=== PATIENT | female | born 1960 | race Caucasian/White ===

== ENCOUNTER 2016-04-26 12:10 | Inpatient (IN) | payer MEDICAID ==
[~2016-04-26] VITALS: Ht 170.2 cm; Wt 71.2 kg
[2016-04-26 12:10] VITALS: BP 85/53; PULSE 116; RESP 16; TEMP 96.3; O2SAT 97
--- NOTE | 2016-04-26 12:17 | NUR ---
Patient to ER bed 7 to gown for evaluation. Side rails up. Report given to SUNNY LAGUNA.
--- NOTE | 2016-04-26 12:30 | NUR ---
Placed on monitor worker, blood pressure machine and pulse oximeter. To gown for exam. Side rails up.
--- NOTE | 2016-04-26 12:39 | NUR ---
informed Dr Tapia for pt's low blood pressure
--- NOTE | 2016-04-26 12:39 | NUR ---
# 20 gauge angiocath placed to RIGHT HAND. Use of asceptic technique. Opsite placed over site. Blood return noted. . Flushed with 10 cc of normal saline. No evidence of infiltration noted. Patient tolerated well.
[2016-04-26] MEDS ORDERED: NACL 0.9% 1,000 ML IV ONE ×2 (12:45→15:00)
--- NOTE | 2016-04-26 12:45 | NUR ---
ER MD DR. HERNANDEZ AT BEDSIDE.
[2016-04-26 13:22] LABS: BASOPHILS % (AUTO) 0.4 % (0.0-2.0); EOSINOPHILS # (AUTO) 0.1 K/uL (0.0-0.4); EOSINOPHILS % (AUTO) 1.2 % (0.0-4.0); HEMATOCRIT 45.9 % (36-48); HEMOGLOBIN 15.1 g/dL (12.0-16.0); LYMPHOCYTES # (AUTO) 0.8 K/uL (1.0-5.5); LYMPHOCYTES % (AUTO) 11.3 % (20.5-51.5); MEAN CORPUSCULAR HEMOGLOBIN 30 pg (27-31); MEAN CORPUSCULAR HGB CONC 33 % (32-36); MEAN CORPUSCULAR VOLUME 91 fL (79.0-98.0); MONOCYTES # (AUTO) 0.3 K/uL (0.0-1.0); MONOCYTES % (AUTO) 5.1 % (1.7-9.3); NEUTROPHILS # (AUTO) 5.5 K/uL (1.8-7.7); PLATELET COUNT (AUTO) 233 K/uL (130-430); RED BLOOD CELL COUNT(AUTO) 5.06 MIL/uL (4.2-6.2); RED CELL DISTRIBUTION WIDTH 13.9 % (9.0-15.0); WHITE BLOOD COUNT (AUTO) 6.7 K/uL (4.8-10.8)
--- NOTE | 2016-04-26 13:28 | NUR ---
# 14 FR In and Out catheter with use of sterile technique. Immediate return of 145 ml urine noted. Urine sample collected and sent to lab. Pt tolerated procedure well. Patient unable to toilet self.
[2016-04-26 13:31] LABS: CALCIUM 8.1 mg/dL (8.4-11.0); CREATININE 1.05 mg/dL (0.55-1.30); POTASSIUM 3.5 mmol/L (3.5-5.1)
[2016-04-26 13:45] LABS: ALBUMIN 3.2 g/dL (3.4-4.8); TOTAL BILIRUBIN 0.5 mg/dL (0.0-1.0); TOTAL PROTEIN, SERUM 6.9 g/dL (6.4-8.3)
[2016-04-26] MEDS ORDERED: PIPERACILLIN/TAZO 3.375 GM in NS 50 ML IV ONE (15:00)
[2016-04-26] MEDS ORDERED: PIPERACILLIN/TAZOBACTAM 3.375 GM/VIAL (ZOSYN) IV ONE (15:06)
[2016-04-26 15:07] LABS: CLARITY/URINE HAZY (CLEAR); GLUCOSE,URINE NEGATIVE (NEGATIVE); KETONES,URINE TRACE (NEGATIVE); LEUKOCYTE ESTERASE ,URINE TRACE (NEGATIVE); NITRITE, URINE POSITIVE (NEGATIVE); PH,URINE 6.5 (5.0-8.0); PROTEIN URINE 2+ (NEGATIVE)
--- NOTE | 2016-04-26 15:11 | NUR ---
report given to pito LAGUNA
--- NOTE | 2016-04-26 15:11 | NUR ---
Pt transported to ct scan via [facility]
[2016-04-26 15:18] LABS: BILIRUBIN,URINE NEGATIVE (NEGATIVE); BLOOD, URINE TRACE (NEGATIVE); COLOR,URINE AMBER (YELLOW)
[2016-04-26 15:54] LABS: BACTERIA,URINE MANY /HPF (None Seen); COARSE GRANULAR CASTS,URINE 0-10 /LPF (None Seen); MUCUS,URINE None Seen /LPF (None Seen); RBC,URINE NONE SEEN /HPF (0-3); WBC,URINE 20-50 /HPF (0-3)
--- NOTE | 2016-04-26 16:00 | NUR ---
pt. in bed BP 125/78 stable verbalizes comfort, states "no pain"
[2016-04-26] MEDS ORDERED: DIGO125T79 PO (16:36)
[2016-04-26] MEDS ORDERED: PRO40 PO (16:36)
[2016-04-26] MEDS ORDERED: RIVA10TA PO (16:36)
[2016-04-26] MEDS ORDERED: DULO20CA PO (16:36)
[2016-04-26] MEDS ORDERED: LORA1TAB PO (16:37)
[2016-04-26] MEDS ORDERED: LYR25 PO (16:38)
--- NOTE | 2016-04-26 17:00 | NUR ---
Patient will be admitted to care of dr. hood. Admitted to tele unit. Will go to room 135. Summary report printed. Report given to admitting rn.
--- NOTE | 2016-04-26 17:00 | NUR ---
ADMISSION NOTE Received patient from ER via gurney. Patient admitted with diagnosis of urosepsis. Patient oriented to hospital routine, call light, toileting and safety-patient verbalized understanding.
[2016-04-26 17:10] VITALS: BP 130/78; PULSE 81; RESP 17; TEMP 97.1; O2SAT 100
[2016-04-26] MEDS ORDERED: FLU VACC QS 2016-17(36MOS+)/PF 0.5 ML/SYR SYRINGE I.M. PRN (17:30)
[2016-04-26] MEDS ORDERED: ACETAMINOPHEN 325 MG TABLET PO PRN (17:45)
--- NOTE | 2016-04-26 18:44 | NUR ---
CLOSING NOTE Will endorse patient to shift commander nurse. Patient is stable, no signs of distress. Patient reeducated on use of call light, to call when bakery assistant is needed. Reeducated patient on fall precaution. Yellow wrist band is in place. Patient's bed is in the lowest position, two side rails up. bed alarm is currently on. Fall precautions in place. Dr. Shepherd primary doctor is here to see patient as well. All needs met.
[2016-04-26] MEDS ORDERED: HYDROcodone/ACETAMIN 5-325 MG TAB (NORCO/ VICODIN) PO PRN (18:45)
[2016-04-26] MEDS ORDERED: ZOLPIDEM TARTRATE 5 MG TABLET PO PRN (18:45)
[2016-04-26] MEDS ORDERED: LEVOFLOXACIN 500 MG/D5W 100 ML IV SCH (19:00)
[2016-04-26 19:30] VITALS: BP 119/78; PULSE 77; RESP 18; TEMP 97.1; O2SAT 100
--- NOTE | 2016-04-26 19:55 | NUR ---
PM ASSESSMENT PT. A/OX4, VITAL SIGNS STABLE, NO DISTRESS NOTED, PT. REPORTS PAIN TO LEFT LOWER EXTREMITY RATED 5/10, PAIN MEDICATION TO BE GIVEN, NOTED WITH FOAM DRESSING TO LEFT KNEE. UPDATED WITH PLAN OF CARE, CALL LIGHT WITHIN REACH, WILL CONTINUE TO MONITOR.
[2016-04-26] MEDS: PREGABALIN 25 MG CAPSULE (LYRICA) PO SCH (20:18)
[2016-04-26] MEDS: KCL 20 mEq in D5/0.45NS 1000mL 1,000 ML IV SCH (20:19)
--- NOTE | 2016-04-26 21:30 | NUR ---
RN ROUNDS PT. RESTING QUIETLY, VITAL SIGNS STABLE, NO DISTRESS NOTED, DENIES PAIN, CALL LIGHT WITHIN REACH, WILL CONTINUE TO MONITOR.
--- NOTE | 2016-04-26 23:25 | NUR ---
RN ROUNDS PT. RESTING QUIETLY, VITAL SIGNS STABLE, NO DISTRESS NOTED, DENIES PAIN, CALL LIGHT WITHIN REACH, WILL CONTINUE TO MONITOR.
[2016-04-27 00:46] VITALS: BP 122/76; PULSE 78; RESP 18; TEMP 97.8; O2SAT 100
--- NOTE | 2016-04-27 01:00 | NUR ---
RN ROUNDS PT. RESTING QUIETLY, VITAL SIGNS STABLE, NO DISTRESS NOTED, DENIES PAIN, CALL LIGHT WITHIN REACH, WILL CONTINUE TO MONITOR.
--- NOTE | 2016-04-27 02:48 | NUR ---
AMBULATION PT. AMBULATED TO THE BATHROOM WITH ASSIST, NOTED WITH SLOW, STEADY GAIT, PT. ABLE TO URINATE. AMBULATED BACK TO BED.
--- NOTE | 2016-04-27 04:00 | NUR ---
RN ROUNDS PT. RESTING QUIETLY, VITAL SIGNS STABLE, NO DISTRESS NOTED, DENIES PAIN, CALL LIGHT WITHIN REACH, WILL CONTINUE TO MONITOR.
[2016-04-27 05:03] VITALS: BP 118/66; PULSE 82; RESP 18; TEMP 98.2; O2SAT 98
[2016-04-27] MEDS: KCL 20 mEq in D5/0.45NS 1000mL 1,000 ML IV SCH ×2 (05:15→13:15)
--- NOTE | 2016-04-27 06:00 | NUR ---
AMBULATE TO THE BATHROOM ASSISTED PT. TO AMBULATE TO THE BATHROOM, NOTED WITH SLOW, STEADY GAIT, PT. ABLE TO URINATE CLEAR YELLOW URINE. ASSISTED SAFELY BACK INTO BED.
--- NOTE | 2016-04-27 06:33 | NUR ---
CLOSING NOTES PT. RESTING QUIETLY, VITAL SIGNS STABLE, NO DISTRESS NOTED, DENIES PAIN, CALL LIGHT WITHIN REACH, KEPT COMFORTABLE.
--- NOTE | 2016-04-27 07:24 | NUR ---
Nutrition Update Pt was admitted with Urosepsis, UTI. Jamel Scale: 18 Diet: Regular BMI: 24.7 kg/m2 RD to follow up per nutrition care standards.
[2016-04-27 07:43] VITALS: BP 108/69; PULSE 73; RESP 14; TEMP 97.2; O2SAT 100
--- NOTE | 2016-04-27 08:00 | NUR ---
Initial note A/O x4, no SOB, no chest pain. Skin warm to touch, s/p fall, laceration at L knee, with serosang drainage, free of s/s of infection. Patient tolerated treatment well. IV #20 at R AC, patent, no infection or infiltration. Continue D5 1/2 NS with Potassium 20 at rate of 100 ml/hr. Clear breathing sounds and active bowel sounds. +2 radial and pedal pulses, no edema noted. Risk for fall, bed at lowest position, bed alarm on, call light within reach, education provided, will continue to monitor patient. Addendum: 04/27/16 at 1723 by Esvin Singh RN IV #20 at R hand, not R AC. AL
[2016-04-27 08:19] LABS: HEMATOCRIT 41.1 % (36-48); HEMOGLOBIN 12.8 g/dL (12.0-16.0); MEAN CORPUSCULAR HEMOGLOBIN 28 pg (27-31); MEAN CORPUSCULAR HGB CONC 31 % (32-36); MEAN CORPUSCULAR VOLUME 91 fL (79.0-98.0); PLATELET COUNT (AUTO) 203 K/uL (130-430); WHITE BLOOD COUNT (AUTO) 5.9 K/uL (4.8-10.8)
[2016-04-27 08:35] LABS: ALBUMIN 2.6 g/dL (3.4-4.8); CALCIUM 7.3 mg/dL (8.4-11.0); CREATININE 0.69 mg/dL (0.55-1.30); POTASSIUM 4.5 mmol/L (3.5-5.1); TOTAL BILIRUBIN 0.5 mg/dL (0.0-1.0); TOTAL PROTEIN, SERUM 5.8 g/dL (6.4-8.3)
[2016-04-27] MEDS: PREGABALIN 25 MG CAPSULE (LYRICA) PO SCH (09:00)
[2016-04-27] MEDS ORDERED: RIVAROXABAN 10 MG TABLET PO SCH (09:00)
[2016-04-27] MEDS ORDERED: DIGOXIN 0.125 MG TABLET PO SCH (09:00)
[2016-04-27] MEDS ORDERED: DULoxetine HCL 20 MG CAPSULE.DR PO SCH ×2 (09:00)
[2016-04-27] MEDS ORDERED: PANTOPRAZOLE SODIUM 40 MG TAB PO SCH (09:00)
--- NOTE | 2016-04-27 09:07 | NUR ---
MD CALL Dr Cora lennon, awaiting call back for medication changes. Pt takes lyrica 25mg po daily and order is for 10 mg po bid. Verified with patient and with patients pharmacy [facility]. Addendum: 04/27/16 at 0913 by Abigail Albarran RN spoke with dr hood and informed her of the issue with lyrica, per she will change the order herself
[2016-04-27 09:48] LABS: ATYPICAL LYMPHOCYTES % 3 % (0-0); BAND % (MANUAL) 8 % (0-6); BASOPHILS % (MANUAL) 0 % (0-2); EOSINOPHILS % (MANUAL) 1 % (0-7); LYMPHOCYTES % (MANUAL) 21 % (20-46); MONOCYTES % (MANUAL) 2 % (0-11)
--- NOTE | 2016-04-27 10:00 | NUR ---
Round A/O x4, no SOB, no chest pain. Skin warm to touch, s/p fall, laceration at L knee, dressing at L knee intact and dry. IV #20 at R AC, patent, no infection or infiltration. Continue D5 1/2 NS with Potassium 20 at rate of 100 ml/hr. Clear breathing sounds and active bowel sounds. +2 radial and pedal pulses, no edema noted. Risk for fall, bed at lowest position, bed alarm on, call light within reach, education provided, will continue to monitor patient. Addendum: 04/27/16 at 1723 by Esvin Singh RN IV #20 at R hand, not R AC. AL
[2016-04-27 12:29] VITALS: BP 106/76; PULSE 74; RESP 17; TEMP 98.7; O2SAT 100
[2016-04-27] MEDS ORDERED: PREGABALIN 25 MG CAPSULE (LYRICA) PO ONE (13:45)
--- NOTE | 2016-04-27 14:00 | NUR ---
Round A/O x4, no SOB, no chest pain. Skin warm to touch, s/p fall, laceration at L knee, dressing at L knee intact and dry. IV #20 at R AC, patent, no infection or infiltration. Continue D5 1/2 NS with Potassium 20 at rate of 100 ml/hr. Clear breathing sounds and active bowel sounds. +2 radial and pedal pulses, no edema noted. Helped patient void x 1. Risk for fall, bed at lowest position, bed alarm on, call light within reach, education provided, will continue to monitor patient. Addendum: 04/27/16 at 1724 by Esvin Singh RN IV #20 at R hand, not R AC. AL
[2016-04-27 14:14] VITALS: Ht 170.2 cm; Wt 71.2 kg
[2016-04-27 15:42] VITALS: BP 131/77; PULSE 78; RESP 17; TEMP 97.6; O2SAT 99
--- NOTE | 2016-04-27 16:00 | NUR ---
Round A/O x4, no SOB, no chest pain. Skin warm to touch, s/p fall, laceration at L knee, dressing at L knee intact and dry. IV #20 at R hand, patent, no infection or infiltration. Continue D5 1/2 NS with Potassium 20 at rate of 100 ml/hr. Clear breathing sounds and active bowel sounds. +2 radial and pedal pulses, no edema noted. Dr. Shepherd came and patient is awared she will go home today. 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 Risk for fall, bed at lowest position, bed alarm on, call light within reach, education provided, will continue to monitor patient.
[2016-04-27] MEDS ORDERED: CIPR-211 PO (16:02)
--- NOTE | 2016-04-27 17:05 | NUR ---
D/C Patient Patient given medication reconciliation form and D/C instructions. Exit Care provided. Patient verbalized understanding. MD discussed with patient the results and treatment provided. Ambulatory with assist for discharge to home. Patient in stable condition, ID band removed. IV catheter removed, intact and dressing applied, no active bleeding. Rx of cipro given. Patient educated on pain management. All belongings sent with patient.
[2016-04-28] MEDS ORDERED: PREGABALIN 25 MG CAPSULE (LYRICA) PO SCH (09:00)
== END 2016-04-27 17:02 | disposition home or self-care (01) | DRG 463 ==
LOC: SED 12:10 → STU 16:24
PROVIDERS: ADMIT Internal Medicine; ATTEND Internal Medicine
DX: N39.0 Urinary tract infection, site not specified (principal); D68.69 Other thrombophilia; E44.0 Moderate protein-calorie malnutrition; I48.91 Unspecified atrial fibrillation; M79.7 Fibromyalgia; Z85.3 Personal history of malignant neoplasm of breast; Z90.10 Acquired absence of unspecified breast and nipple; Z79.01 Long term (current) use of anticoagulants; Z92.21 Personal history of antineoplastic chemotherapy; Z68.24 Body mass index [BMI] 24.0-24.9, adult; Z92.3 Personal history of irradiation; Z90.49 Acquired absence of other specified parts of digestive tract; Z79.899 Other long term (current) drug therapy; Z85.841 Personal history of malignant neoplasm of brain; Z85.830 Personal history of malignant neoplasm of bone
CPT/HCPCS: 36415; 70450-TC; 71010; 80053; 80162-TC; 81000-TC; 83605; 83690-TC; 84484; 85007; 85025; 85027; 87040-TC; 87086; 87186-TC; 93005; 96361; 96365; 99285; J1956; J2543; J7030; J7060

== ENCOUNTER 2016-08-29 10:42 | Inpatient (IN) | payer MEDICAID ==
[~2016-08-29] VITALS: Ht 177.8 cm; Wt 75.3 kg
[~2016-08-29 10:42] MED LIST: CIPR-211 PO; DIGO125T79 PO; DULO20CA PO; LORA1TAB PO; LYR25 PO; PRO40 PO; RIVA10TA PO
[2016-08-29 11:00] VITALS: BP_SYST 90
[2016-08-29] MEDS ORDERED: NACL 0.9% 1,000 ML IV SCH (11:36)
[2016-08-29 12:10] LABS: BASOPHILS % (AUTO) 0.2 % (0.0-2.0); EOSINOPHILS % (AUTO) 0.6 % (0.0-4.0); HEMATOCRIT 37.5 % (36-48); HEMOGLOBIN 12.9 g/dL (12.0-16.0); LYMPHOCYTES # (AUTO) 0.5 K/uL (1.0-5.5); MEAN CORPUSCULAR HEMOGLOBIN 33 pg (27-31); MEAN CORPUSCULAR HGB CONC 35 % (32-36); MEAN CORPUSCULAR VOLUME 94 fL (79.0-98.0); MONOCYTES # (AUTO) 0.1 K/uL (0.0-1.0); MONOCYTES % (AUTO) 2.5 % (1.7-9.3); NEUTROPHILS # (AUTO) 3.8 K/uL (1.8-7.7); NEUTROPHILS % (AUTO) 85.7 % (40.0-70.0); PLATELET COUNT (AUTO) 160 K/uL (130-430); RED BLOOD CELL COUNT(AUTO) 3.98 MIL/uL (4.2-6.2); RED CELL DISTRIBUTION WIDTH 17.2 % (9.0-15.0); WHITE BLOOD COUNT (AUTO) 4.4 K/uL (4.8-10.8)
[2016-08-29 12:15] LABS: CREATININE 1.23 mg/dL (0.55-1.30); POTASSIUM 3.6 mmol/L (3.5-5.1)
[2016-08-29 12:16] LABS: BILIRUBIN,URINE NEGATIVE (NEGATIVE); BLOOD, URINE 2+ (NEGATIVE); CLARITY/URINE SL HAZY (CLEAR); COLOR,URINE YELLOW (YELLOW); GLUCOSE,URINE NEGATIVE (NEGATIVE); KETONES,URINE NEGATIVE (NEGATIVE); LEUKOCYTE ESTERASE ,URINE NEGATIVE (NEGATIVE); NITRITE, URINE POSITIVE (NEGATIVE); PH,URINE 5.5 (5.0-8.0); PROTEIN URINE TRACE (NEGATIVE)
[2016-08-29 12:19] LABS: PROTHROMBIN TIME 10.9 SECS (9.5-12.5)
[2016-08-29 12:20] LABS: ALBUMIN 3.4 g/dL (3.4-4.8); TOTAL BILIRUBIN 1.1 mg/dL (0.0-1.0); TOTAL PROTEIN, SERUM 6.9 g/dL (6.4-8.3)
[2016-08-29 12:33] LABS: BACTERIA,URINE MANY /HPF (None Seen); WBC,URINE 0-3 /HPF (0-3)
[2016-08-29] MEDS ORDERED: cefTRIAXone 1 GM in D5W 50 ML IV ONE (14:30)
[2016-08-29] MEDS ORDERED: RIVA10TA PO (14:38)
[2016-08-29] MEDS ORDERED: LYR25 PO (14:38)
[2016-08-29] MEDS ORDERED: PALB75CA PO (14:38)
[2016-08-29] MEDS ORDERED: XARELTO PO (14:38)
[2016-08-29] MEDS: KCL 20 mEq in D5NS 1000 mL 1,000 ML IV SCH (15:47)
[2016-08-29 16:09] VITALS: BP_SYST 106
[2016-08-29] MEDS ORDERED: cefTRIAXone 1 GM IVPB PREMIX 50 ML IV ONE (18:40)
[2016-08-29] MEDS ORDERED: cefTRIAXone 1 GM IVPB PREMIX 50 ML IV SCH (19:15)
[2016-08-29] MEDS ORDERED: HYDROcodone/ACETAMIN 5-325 MG TAB (NORCO/ VICODIN) PO PRN (19:15)
[2016-08-29] MEDS ORDERED: LORazepam 1 MG TABLET PO PRN (19:15)
[2016-08-29] MEDS ORDERED: BENZOCAINE/MENTHOL 1 EACH LOZENGE MM PRN (19:45)
[2016-08-29 20:18] VITALS: BP_SYST 99
[2016-08-29] MEDS: HYDROcodone/ACETAMIN 10-325 MG TAB PO PRN (20:21)
[2016-08-29] MEDS: RIVAROXABAN 10 MG TABLET PO SCH (20:59)
[2016-08-29] MEDS ORDERED: NORMAL SALINE 5 ML DISP.SYRIN IVF SCH (22:00)
[2016-08-30] VITALS (7 sets, daily range): BP systolic 91–123
[2016-08-30] MEDS: KCL 20 mEq in D5NS 1000 mL 1,000 ML IV SCH ×3 (03:39→22:33)
[2016-08-30] MEDS: HYDROcodone/ACETAMIN 10-325 MG TAB PO PRN ×3 (03:39→20:35)
[2016-08-30 07:17] LABS: MONOCYTES # (AUTO) 0.1 K/uL (0.0-1.0); NEUTROPHILS # (AUTO) 1.9 K/uL (1.8-7.7)
[2016-08-30 07:32] LABS: CALCIUM 7.5 mg/dL (8.4-11.0); CREATININE 0.91 mg/dL (0.55-1.30); POTASSIUM 4.2 mmol/L (3.5-5.1)
[2016-08-30 07:33] LABS: BASOPHILS % (AUTO) 0.3 % (0.0-2.0); EOSINOPHILS % (AUTO) 0.5 % (0.0-4.0); HEMATOCRIT 33.6 % (36-48); HEMOGLOBIN 11.3 g/dL (12.0-16.0); LYMPHOCYTES # (AUTO) 0.5 K/uL (1.0-5.5); LYMPHOCYTES % (AUTO) 21.9 % (20.5-51.5); MEAN CORPUSCULAR HEMOGLOBIN 32 pg (27-31); MEAN CORPUSCULAR HGB CONC 34 % (32-36); MEAN CORPUSCULAR VOLUME 95 fL (79.0-98.0); MONOCYTES % (AUTO) 3.3 % (1.7-9.3); PLATELET COUNT (AUTO) 137 K/uL (130-430); RED BLOOD CELL COUNT(AUTO) 3.53 MIL/uL (4.2-6.2); RED CELL DISTRIBUTION WIDTH 17.4 % (9.0-15.0); WHITE BLOOD COUNT (AUTO) 2.5 K/uL (4.8-10.8)
[2016-08-30] MEDS ORDERED: RIVAROXABAN 10 MG TABLET PO SCH (09:00)
[2016-08-30] MEDS: PANTOPRAZOLE SODIUM 40 MG TAB PO SCH (09:01)
[2016-08-30] MEDS: cefTRIAXone 1 GM IVPB PREMIX 50 ML IV SCH (09:01)
[2016-08-30] MEDS: DIGOXIN 0.125 MG TABLET PO SCH (09:04)
[2016-08-30] MEDS: DULoxetine HCL 20 MG CAPSULE.DR PO SCH (09:04)
[2016-08-30] MEDS ORDERED: ONDANSETRON HCL 4 MG/2 ML VIAL IVP PRN (12:45)
[2016-08-30] MEDS: ALBUTEROL SULFATE 0.083% 2.5 MG/3 ML VIAL.NEB INH SCH ×2 (15:00→23:00)
[2016-08-30] MEDS: RIVAROXABAN 10 MG TABLET PO SCH (20:17)
[2016-08-31 00:48] VITALS: BP_SYST 118
[2016-08-31 04:38] VITALS: BP_SYST 124
[2016-08-31] MEDS: KCL 20 mEq in D5NS 1000 mL 1,000 ML IV SCH (06:30)
[2016-08-31 06:35] LABS: CREATININE 0.77 mg/dL (0.55-1.30); POTASSIUM 4.3 mmol/L (3.5-5.1)
[2016-08-31 06:46] LABS: BASOPHILS % (AUTO) 0.8 % (0.0-2.0); EOSINOPHILS % (AUTO) 1.8 % (0.0-4.0); HEMATOCRIT 31.5 % (36-48); HEMOGLOBIN 10.5 g/dL (12.0-16.0); LYMPHOCYTES # (AUTO) 0.5 K/uL (1.0-5.5); LYMPHOCYTES % (AUTO) 23.1 % (20.5-51.5); MEAN CORPUSCULAR HEMOGLOBIN 32 pg (27-31); MEAN CORPUSCULAR HGB CONC 33 % (32-36); MEAN CORPUSCULAR VOLUME 97 fL (79.0-98.0); MONOCYTES # (AUTO) 0.1 K/uL (0.0-1.0); MONOCYTES % (AUTO) 5.2 % (1.7-9.3); NEUTROPHILS # (AUTO) 1.7 K/uL (1.8-7.7); NEUTROPHILS % (AUTO) 69.1 % (40.0-70.0); PLATELET COUNT (AUTO) 131 K/uL (130-430); RED BLOOD CELL COUNT(AUTO) 3.26 MIL/uL (4.2-6.2); RED CELL DISTRIBUTION WIDTH 17.3 % (9.0-15.0); WHITE BLOOD COUNT (AUTO) 2.3 K/uL (4.8-10.8)
[2016-08-31] MEDS: ALBUTEROL SULFATE 0.083% 2.5 MG/3 ML VIAL.NEB INH SCH ×2 (07:26→16:17)
[2016-08-31 08:00] VITALS: BP_SYST 122
[2016-08-31] MEDS: DULoxetine HCL 20 MG CAPSULE.DR PO SCH (09:49)
[2016-08-31] MEDS: PANTOPRAZOLE SODIUM 40 MG TAB PO SCH (09:49)
[2016-08-31] MEDS: DIGOXIN 0.125 MG TABLET PO SCH (09:50)
[2016-08-31] MEDS: cefTRIAXone 1 GM IVPB PREMIX 50 ML IV SCH (09:51)
[2016-08-31] MEDS: HYDROcodone/ACETAMIN 10-325 MG TAB PO PRN (09:52)
[2016-08-31 12:00] VITALS: BP_SYST 112
[2016-08-31] MEDS ORDERED: DOXY100T2 PO (12:39)
[2016-08-31 16:00] VITALS: BP_SYST 107
[2016-08-31 16:51] VITALS: BP_SYST 107
== END 2016-08-31 19:25 | disposition home or self-care (01) | DRG 463 ==
LOC: SED 10:42 → STU 14:41
PROVIDERS: ADMIT Internal Medicine; ATTEND Internal Medicine
DX: N39.0 Urinary tract infection, site not specified (principal); C50.919 Malignant neoplasm of unspecified site of unspecified female breast; E86.0 Dehydration; J20.9 Acute bronchitis, unspecified; R79.89 Other specified abnormal findings of blood chemistry
CPT/HCPCS: 36415; 71010; 72050-TC; 80048; 80053; 80162-TC; 81000-TC; 83605; 85025; 85610-TC; 85730-TC; 87040-TC; 87086; 87186-TC; 93005; 94640; 96360; 97116-GP; 97530-GP; 99285; J0696; J7030

== ENCOUNTER 2018-11-20 05:16 | Emergency (ER) | payer MEDICAID ==
[~2018-11-20] VITALS: Ht 170.2 cm; Wt 68.0 kg
[2018-11-20 05:16] VITALS: BP_SYST 108
[~2018-11-20 05:16] MED LIST changes: +ALPR0.25 PO; +AMI200 PO; -CIPR-211 PO; -DIGO125T79 PO; +DILT120C89 PO; +HYDR-4100 PO
[2018-11-20] MEDS ORDERED: NACL 0.9% 1,000 ML IV ONE (05:22)
[2018-11-20 06:13] LABS: BASOPHILS # (AUTO) 0.1 K/uL (0.0-0.2); BASOPHILS % (AUTO) 0.9 % (0.0-2.0); EOSINOPHILS # (AUTO) 0.1 K/uL (0.0-0.4); EOSINOPHILS % (AUTO) 1.5 % (0.0-4.0); HEMATOCRIT 41.5 % (36-48); HEMOGLOBIN 13.9 g/dL (12.0-16.0); LYMPHOCYTES # (AUTO) 0.7 K/uL (1.0-5.5); LYMPHOCYTES % (AUTO) 11.4 % (20.5-51.5); MEAN CORPUSCULAR HEMOGLOBIN 33 pg (27-31); MEAN CORPUSCULAR HGB CONC 33 % (32-36); MEAN CORPUSCULAR VOLUME 100 fL (79.0-98.0); MONOCYTES # (AUTO) 0.2 K/uL (0.0-1.0); NEUTROPHILS # (AUTO) 4.9 K/uL (1.8-7.7); NEUTROPHILS % (AUTO) 83.2 % (40.0-70.0); PLATELET COUNT (AUTO) 176 K/uL (130-430); RED BLOOD CELL COUNT(AUTO) 4.16 MIL/uL (4.2-6.2); RED CELL DISTRIBUTION WIDTH 15.3 % (9.0-15.0); WHITE BLOOD COUNT (AUTO) 5.8 K/uL (4.8-10.8)
[2018-11-20 06:20] LABS: ANION GAP 8 (5-15); CHLORIDE 104 mmol/L (98-107); CREATININE 1.32 mg/dL (0.55-1.30); GLUCOSE 99 mg/dL (70-99); SODIUM SERUM 140 mmol/L (136-145); UREA NITROGEN, BLOOD 17 mg/dL (8-21)
[2018-11-20 06:22] LABS: GFR AFRICAN AMERICAN 53 mL/min (>90)
[2018-11-20 06:23] LABS: PROTHROMBIN TIME 10.2 SECS (9.5-12.5)
[2018-11-20 06:26] LABS: ALANINE AMINOTRANSFERASE 11 U/L (12-78); ASPARTATE AMINOTRANSFERASE 16 U/L (10-37); TOTAL BILIRUBIN 0.5 mg/dL (0.0-1.0)
[2018-11-20 06:29] LABS: ALCOHOL, BLOOD < 3 mg/dL (<10)
[2018-11-20 09:05] LABS: BILIRUBIN,URINE NEGATIVE (NEGATIVE); CLARITY/URINE CLEAR (CLEAR); COLOR,URINE YELLOW (YELLOW); GLUCOSE,URINE NEGATIVE (NEGATIVE); KETONES,URINE NEGATIVE (NEGATIVE); LEUKOCYTE ESTERASE ,URINE TRACE (NEGATIVE); NITRITE, URINE NEGATIVE (NEGATIVE); PROTEIN URINE NEGATIVE (NEGATIVE)
[2018-11-20 09:07] LABS: BLOOD, URINE TRACE (NEGATIVE)
[2018-11-20 09:16] LABS: BENZODIAZEPINE, URINE POSITIVE (NEG <=150); OPIATE, URINE POSITIVE (NEG <=100)
[2018-11-20 09:17] LABS: BARBITURATE, URINE NEGATIVE (NEG <=200); CANNABINOID, URINE NEGATIVE (NEG <=50); COCAINE, URINE NEGATIVE (NEG <=150); METHAMPHETAMINES SCREEN,URINE NEGATIVE (NEG <=500); PHENCYCLIDINE SCREEN,URINE NEGATIVE (NEG <=25); UR TRICYCLIC ANTIDEPRESSANTS NEGATIVE (NEG <=300); URINE AMPHETAMINE NEGATIVE (NEG <=500); URINE METHADONE NEGATIVE (NEG <=200); URINE OXYCODONE SCREEN NEGATIVE (NEG <=100); URINE PROPOXYPHENE SCREEN NEGATIVE (NEG <=300)
[2018-11-20 09:35] LABS: BACTERIA,URINE FEW /HPF (None Seen)
[2018-11-20] MEDS ORDERED: NITROFURANTOIN MONOHYD/M-CRYST 100 MG CAPSULE PO ONE (13:30)
[2018-11-20 13:45] VITALS: BP_SYST 108
== END 2018-11-20 13:45 | disposition home or self-care (01) ==
LOC: SED 05:16
DX: R41.82 Altered mental status, unspecified (principal); H61.23 Impacted cerumen, bilateral; N39.0 Urinary tract infection, site not specified; I48.91 Unspecified atrial fibrillation; Z86.73 Personal history of transient ischemic attack (TIA), and cerebral infarction without residual deficits; Z85.3 Personal history of malignant neoplasm of breast; Z85.841 Personal history of malignant neoplasm of brain; Z85.830 Personal history of malignant neoplasm of bone; Z88.5 Allergy status to narcotic agent; Z88.6 Allergy status to analgesic agent; Z79.899 Other long term (current) drug therapy
CPT/HCPCS: 36415; 70450; 71045; 80053; 80307; 81000; 84484; 85025; 85610; 85730; 93005; 96360; 99284; G0482; J7030